=== PATIENT | female | born 1970 | race Caucasian/White ===

== ENCOUNTER 2016-08-07 18:49 | Emergency (ER) | payer SELFPAY ==
[~2016-08-07] VITALS: Ht 175.3 cm; Wt 72.6 kg
[~2016-08-07 18:49] MED LIST: CYCL10TA9 PO; ESCT10T PO; HYDR-3714 PO; IBP800T PO; NAPR-243 PO; NAPR220T29 PO; PRD20T PO; PRM25T PO; TRAM50TA2 PO; TRM50T PO
[2016-08-07] MEDS ORDERED: morphine INJ 10 MG/ML 1ML (SYR OR VIAL) IM ONE (19:00)
[2016-08-07] MEDS ORDERED: KETOROLAC 60 MG/2 ML VIAL IM ONE (19:00)
--- NOTE | 2016-08-07 19:02 | ED Back Pain ---
General Chief Complaint: Back Problems Stated Complaint: BACK PAIN Source of Information: Patient Exam Limitations: No Limitations History of Present Illness Time Seen by Provider: 19:00 Initial Comments To ER with left flank pain for one week. She denies any loss of bowel or bladder control. Denies any fevers nausea or vomiting. Denies any loss of control of her bowel or bladders or any anesthesia or hypoesthesia of her genitals. The pain occasionally travels down the left leg that is infrequent. She states that she has had this pain before and at that time it was a kidney infection. Location: Lumbar Spine Timing/Duration: 1 Week Severity: Moderate Associated Symptoms: lower back pain Allergies and Home Medications Allergies Coded Allergies: No Known Drug Allergies (Unverified , 04/03/12) Home Medications No Active Prescriptions or Reported Meds Constitutional: see HPI, No chills, No fever EENTM: see HPI Respiratory: no symptoms reported Cardiovascular: no symptoms reported Genitourinary: see HPI, No dysuria, No frequency, No hematuria, No hesitancy Musculoskeletal: no symptoms reported Skin: no symptoms reported Psychiatric/Neurological: No Symptoms Reported Past [id number] Hx Patient Social History Recent Foreign Travel: No Contact w/Someone Who Travel: No Surgeries HX Surgeries: Yes (LEFT KNEE) Respiratory Hx Respiratory Disorders: No Cardiovascular Hx Cardiac Disorders: No Neurological Hx Neurological Disorders: No Reproductive System Hx Reproductive Disorders: No Genitourinary Hx Genitourinary Disorders: No Gastrointestinal Hx Gastrointestinal Disorders: No Musculoskeletal Hx Musculoskeletal Disorders: No Endocrine Hx Endocrine Disorders: No HEENT HX ENT Disorders: No Cancer Hx Cancer: No Psychosocial Hx Psychiatric Problems: Yes Behavioral Health Disorders: Anxiety Physical Exam Vital Signs Vital Sign - Last 12Hours 08/07/16 19:00 Temp 98.8 Pulse 94 Resp 20 B/P (MAP) 162/112 Pulse Ox 100 O2 Delivery Room Air Capillary Refill : General Appearance: No Apparent Distress, WD/WN HEENT: PERRL/EOMI, TMs Normal Neck: Full Range of Motion, Normal Inspection Respiratory: No Accessory Muscle Use, No Respiratory Distress Gastrointestinal: Normal Bowel Sounds, Non Tender, Soft Back: CVA Tenderness (L), No CVA Tenderness (R) Extremity: Normal Capillary Refill, Normal Inspection Neurologic/Psychiatric: Alert, Oriented x3, No Motor/Sensory Deficits Skin: Normal Color, Warm/Dry Progress/Results/Core Measures Results/Orders Lab Results Laboratory Tests Test 08/07/16 19:00 08/07/16 19:08 Range/Units Urine Color YELLOW Urine Clarity SLIGHTLY CLOUDY Urine pH 6 5-9 Urine Specific [place] 1.020 1.016-1.022 Urine Protein NEGATIVE NEGATIVE Urine Glucose (UA) NEGATIVE NEGATIVE Urine Ketones NEGATIVE NEGATIVE Urine Nitrite NEGATIVE NEGATIVE Urine Bilirubin NEGATIVE NEGATIVE Urine Urobilinogen NORMAL NORMAL MG/DL Urine Leukocyte Esterase 1+ H NEGATIVE Urine RBC (Auto) NEGATIVE NEGATIVE Urine RBC NONE /HPF Urine WBC 0-2 /HPF Urine Squamous Epithelial Cells 25-50 H /HPF Urine Crystals NONE /LPF Urine Bacteria MODERATE H /HPF Urine Casts NONE /LPF Urine Mucus NEGATIVE /LPF Urine Culture Indicated NO Urine Opiates Screen NEGATIVE NEGATIVE Urine Oxycodone Screen NEGATIVE NEGATIVE Urine Methadone Screen NEGATIVE NEGATIVE Urine Propoxyphene Screen NEGATIVE NEGATIVE Urine Barbiturates Screen NEGATIVE NEGATIVE Ur Tricyclic Antidepressants Screen NEGATIVE NEGATIVE Urine Phencyclidine Screen NEGATIVE NEGATIVE Urine Amphetamines Screen NEGATIVE NEGATIVE Urine Methamphetamines Screen NEGATIVE NEGATIVE Urine Benzodiazepines Screen NEGATIVE NEGATIVE Urine Cocaine Screen NEGATIVE NEGATIVE Urine Cannabinoids Screen POSITIVE H NEGATIVE White Blood Count 8.0 4.3-11.0 10^3/uL Red Blood Count 4.83 4.35-5.85 10^6/uL Hemoglobin 15.6 11.5-16.0 G/DL Hematocrit 44 35-52 % Mean Corpuscular Volume 90 80-99 FL Mean Corpuscular Hemoglobin 32 25-34 PG Mean Corpuscular Hemoglobin Concent 36 32-36 G/DL Red Cell Distribution Width 12.2 10.0-14.5 % Platelet Count 218 130-400 10^3/uL Mean Platelet Volume 11.5 H 7.4-10.4 FL Neutrophils (%) (Auto) 61 42-75 % Lymphocytes (%) (Auto) 29 12-44 % Monocytes (%) (Auto) 7 0-12 % Eosinophils (%) (Auto) 2 0-10 % Basophils (%) (Auto) 0 0-10 % Neutrophils # (Auto) 4.9 1.8-7.8 X 10^3 Lymphocytes # (Auto) 2.3 1.0-4.0 X 10^3 Monocytes # (Auto) 0.6 0.0-1.0 X 10^3 Eosinophils # (Auto) 0.2 0.0-0.3 10^3/uL Basophils # (Auto) 0.0 0.0-0.1 10^3/uL Sodium Level 138 135-145 MMOL/L Potassium Level 3.4 L 3.6-5.0 MMOL/L Chloride Level 105 98-107 MMOL/L Carbon Dioxide Level 26 21-32 MMOL/L Anion Gap 7 5-14 MMOL/L Blood Urea Nitrogen 6 L 7-18 MG/DL Creatinine 0.77 0.60-1.30 MG/DL Estimat Glomerular Filtration Rate > 60 BUN/Creatinine Ratio 8 Glucose Level 95 70-105 MG/DL Calcium Level 9.1 8.5-10.1 MG/DL My Orders Orders - AMANDEEP WILLIAMSON APRN Cbc With Automated Diff (08/07/16 18:59) Basic Metabolic Panel (08/07/16 18:59) Ua Culture If Indicated (08/07/16 18:59) Urine Bedside (08/07/16 18:59) Drug Screen Stat (Urine) (08/07/16 18:59) Ct Abd/Pelvis Wo(Kidney Stone) (08/07/16 18:59) Ketorolac Injection (Toradol Injection) (08/07/16 19:00) Morphine Injection (Morphine Injection (08/07/16 19:00) Us Non Ob Pelvis Comp/Transvag (08/07/16 19:55) Medications Given in ED Current Medications Medications Dose Ordered Sig/Radha Route Start Time Stop Time Status Last Admin Dose Admin Ketorolac Tromethamine 60 mg ONCE ONCE IM 08/07/16 19:00 08/07/16 19:01 DC 08/07/16 19:06 60 MG Morphine Sulfate 6 mg ONCE ONCE IM 08/07/16 19:00 08/07/16 19:01 DC 08/07/16 19:06 6 MG Vital Signs/I&O Vital Sign - Last 12Hours 08/07/16 08/07/16 08/07/16 19:00 19:06 19:06 Temp 98.8 98.8 98.8 Pulse 94 Resp 20 B/P (MAP) 162/112 Pulse Ox 100 O2 Delivery Room Air Departure Impression Impression: Primary Impression: Acute low back pain Additional Impression: Left ovarian cyst Disposition: HOME, SELF-CARE Condition: Stable Departure-Patient Inst. Decision time for Depature: 20:45 [address]errals: [facility] (PCP/Family) Primary Care Physician Patient Instructions: Low Back Pain (DC) Add. Discharge Instructions: 1. Medications as directed 2. Follow-up with your doctor next week for recheck 3. Return to the emergency room for any worsening such as loss of sensation to your genitals, loss of control of bowel or bladder function, high fevers All discharge instructions reviewed with patient and/or family. Voiced understanding. Scripts Cyclobenzaprine HCl (Cyclobenzaprine HCl) 5 Mg Tablet 5 MG PO TID, #20 TAB Prov: AMANDEEP WILLIAMSON APRN 08/07/16 Naproxen (Naprosyn) 500 Mg Tablet 500 MG PO BID Y for PAIN, #30 TAB Prov: AMANDEEP WILLIAMSON APRN 08/07/16 AMANDEEP WILLIAMSON APRN Aug 07, 2016 19:02
[2016-08-07 19:12] LABS: BILIRUBIN,URINE NEGATIVE (NEGATIVE); KETONES,URINE NEGATIVE (NEGATIVE); LEUKOCYTE ESTERASE ,URINE 1+ (NEGATIVE); NITRITE,URINE NEGATIVE (NEGATIVE); PH,URINE 6 (5-9); PROTEIN,URINE NEGATIVE (NEGATIVE); UROBILINOGEN,URINE NORMAL (NORMAL)
[2016-08-07 19:19] LABS: SQUAMOUS EPITHELIAL CELL,UR 25-50 /HPF; WBC,URINE 0-2 /HPF
[2016-08-07 19:19] LABS: BASOPHILS % (AUTO) 0 % (0-10); EOSINOPHILS # (AUTO) 0.2 10^3/uL (0.0-0.3); EOSINOPHILS % (AUTO) 2 % (0-10); LYMPHOCYTES # (AUTO) 2.3 X 10^3 (1.0-4.0); LYMPHOCYTES % (AUTO) 29 % (12-44); MEAN CORPUSCULAR HEMOGLOBIN 32 PG (25-34); MEAN CORPUSCULAR HGB CONC 36 G/DL (32-36); MEAN CORPUSCULAR VOLUME 90 FL (80-99); MEAN PLATELET VOLUME 11.5 FL (7.4-10.4); MONOCYTES # (AUTO) 0.6 X 10^3 (0.0-1.0); MONOCYTES % (AUTO) 7 % (0-12); NEUTROPHILS # (AUTO) 4.9 X 10^3 (1.8-7.8); NEUTROPHILS % (AUTO) 61 % (42-75); PLATELET COUNT 218 10^3/uL (130-400); RED BLOOD COUNT 4.83 10^6/uL (4.35-5.85); RED CELL DISTRIBUTION WIDTH 12.2 % (10.0-14.5)
[2016-08-07 19:31] LABS: ANION GAP 7 MMOL/L (5-14); BLOOD UREA NITROGEN 6 MG/DL (7-18); BUN/CREATININE RATIO 8; CALCIUM 9.1 MG/DL (8.5-10.1); CARBON DIOXIDE 26 MMOL/L (21-32); CHLORIDE 105 MMOL/L (98-107); CREATININE SERUM 0.77 MG/DL (0.60-1.30); GFR ESTIMATED > 60; GLUCOSE 95 MG/DL (70-105); POTASSIUM 3.4 MMOL/L (3.6-5.0); SODIUM 138 MMOL/L (135-145)
--- NOTE | 2016-08-07 19:42 | Diagnostic Imaging Report ---
PROCEDURE: CT urinary tract, rule out kidney stone. TECHNIQUE: Multiple contiguous axial images were obtained through the abdomen and pelvis without the use of intravenous contrast. INDICATION: Severe left lower flank and back pain for one week COMPARISON STUDY: CT scan from 04-03-12. FINDINGS: The lung bases are clear. The liver, gallbladder, spleen, pancreas, adrenal glands appear normal. Both renal pelvises are little more prominent than they were previously. The calyces are not dilated. This is probably due to the patient's hydration state. The ureters are not dilated and no calculi are seen. Urinary bladder is mildly thickened possibly urinary tract infection. The uterus is normal. There is a 3.7 cm left ovarian cyst. No free fluid is present. There are no hernias. The bowel loops appear unremarkable. There is normal appearance of the appendix. The vascular and osseous structures are normal. IMPRESSION: 1. There is mild thickening of the urinary bladder possible urinary tract infection. 2. There is a 3.7 cm left ovarian cyst. Dictated by: Dictated on workstation # [id number]
[2016-08-07] MEDS ORDERED: CYCL5TAB PO (20:47)
[2016-08-07] MEDS ORDERED: NAPR500T PO (20:47)
[2016-08-07 21:01] VITALS: BP 133/108
--- NOTE | 2016-08-07 21:37 | Diagnostic Imaging Report ---
INDICATION: Pelvic pain. EXAM: Transabdominal and endovaginal pelvic sonogram was performed. FINDINGS: The uterus measures 7.4 x 4.5 x 3.2 cm. The endometrial stripe is 5 mm. There is a 3 cm cyst on the left ovary with low-level internal echoes. This may be a hemorrhagic cyst. The right ovary was not seen. IMPRESSION: Hemorrhagic cyst of the left ovary. The uterus is unremarkable. The right ovary cannot be located transabdominally or endovaginally. Dictated by: Dictated on workstation # [id number]
--- OUTSIDE RECORDS SUMMARY | 2016-09-09 15:14 | XMS REPORT | Continuity of Care Document ---
Author Author [facility] Organization [facility] Address Unknown Phone Unavailable Allergies Active Description Code Type Severity Reaction Onset Reported/Identified Relationship to Patient Clinical Status Yes No Known Drug Allergies [id number] Drug Allergy Unknown N/ A 04/03/2012 Yes Benzodiazepines Drug Allergy N/A N/A 05/16/2012 Yes Lortab Drug Allergy N/A N/A 05/16/2012 Yes Benzodiazepines Drug Allergy 05/16/2012 Yes Lortab Drug Allergy 05/16/2012 Medications Problems Date Dx Coded Attending Type Code Diagnosis Diagnosed By 04/03/2012 Ot 289.2 MESENTERIC LYMPHADENITIS 04/03/2012 Ot 724.2 LUMBAGO 04/03/2012 Ot 789.09 ABDOMINAL PAIN, OTHER SPECIFIED SITE 05/03/2012 787.02 NAUSEA ALONE 05/03/2012 787.91 DIARRHEA 05/03/2012 789.00 ABDOMINAL PAIN UNSPECIFIED SITE 05/03/2012 V70.0 ROUTINE GENERAL MEDICAL EXAMINATION AT A HEALTH CARE FACILITY 05/03/2012 YODIT MCMAHAN DO 787.02 NAUSEA ALONE 05/03/2012 YODIT MCMAHAN DO 787.91 DIARRHEA 05/03/2012 YODIT MCMAHAN DO 789.00 ABDOMINAL PAIN UNSPECIFIED SITE 05/03/2012 YODIT MCMAHAN DO V70.0 ROUTINE GENERAL MEDICAL EXAMINATION AT A HEALTH CARE FACILITY 05/03/2012 787.02 NAUSEA ALONE 05/03/2012 787.91 DIARRHEA 05/03/2012 789.00 ABDOMINAL PAIN UNSPECIFIED SITE 05/03/2012 V70.0 ROUTINE GENERAL MEDICAL EXAMINATION AT A HEALTH CARE FACILITY 05/03/2012 ROBERT HAWKINS APRN 787.02 NAUSEA ALONE 05/03/2012 ROBERT HAWKINS APRN 787.91 DIARRHEA 05/03/2012 ROBERT HAWKINS APRN R 789.00 ABDOMINAL PAIN UNSPECIFIED SITE 05/03/2012 ROBERT HAWKINS APRN V70.0 ROUTINE GENERAL MEDICAL EXAMINATION AT A HEALTH CARE FACILITY 05/03/2012 787.02 Nausea Alone 05/03/2012 787.91 Diarrhea 05/03/2012 789.00 Abdominal Pain Unspecified Site 05/03/2012 V70.0 ROUTINE GENERAL MEDICAL EXAMINATION AT A HEALTH CARE FACILITY 05/03/2012 YODIT MCMAHAN DO K 787.02 Nausea Alone 05/03/2012 MCMAHAN YODIT BOSE K 787.91 Diarrhea 05/03/2012 YODIT MCMAHAN DO K 789.00 Abdominal Pain Unspecified Site 05/03/2012 YODIT MCMAHAN DO K V70.0 ROUTINE GENERAL MEDICAL EXAMINATION AT A HEALTH CARE FACILITY 05/03/2012 787.02 Nausea Alone 05/03/2012 787.91 Diarrhea 05/03/2012 789.00 Abdominal Pain Unspecified Site 05/03/2012 V70.0 ROUTINE GENERAL MEDICAL EXAMINATION AT A HEALTH CARE FACILITY 05/03/2012 787.02 Nausea Alone 05/03/2012 787.91 Diarrhea 05/03/2012 789.00 Abdominal Pain Unspecified Site 05/03/2012 V70.0 ROUTINE GENERAL MEDICAL EXAMINATION AT A HEALTH CARE FACILITY 05/03/2012 787.02 Nausea Alone 05/03/2012 787.91 Diarrhea 05/03/2012 789.00 Abdominal Pain Unspecified Site 05/03/2012 V70.0 ROUTINE GENERAL MEDICAL EXAMINATION AT A HEALTH CARE FACILITY 05/03/2012 787.02 Nausea Alone 05/03/2012 787.91 Diarrhea 05/03/2012 789.00 Abdominal Pain Unspecified Site 05/03/2012 V70.0 ROUTINE GENERAL MEDICAL EXAMINATION AT A HEALTH CARE FACILITY 05/03/2012 ABRAM MISHRA APRN 787.02 Nausea Alone 05/03/2012 ABRAM MISHRA APRN 787.91 Diarrhea 05/03/2012 ABRAM MISHRA APRN 789.00 Abdominal Pain Unspecified Site 05/03/2012 ABRAM MISHRA APRN V70.0 ROUTINE GENERAL MEDICAL EXAMINATION AT A HEALTH CARE FACILITY 05/03/2012 ABRAM MISHRA APRN 787.02 Nausea Alone 05/03/2012 ABRAM MISHRA APRN 787.91 Diarrhea 05/03/2012 ABRAM MISHRA APRN 789.00 Abdominal Pain Unspecified Site 05/03/2012 ABRAM MISHRA APRN V70.0 ROUTINE GENERAL MEDICAL EXAMINATION AT A HEALTH CARE FACILITY 05/03/2012 RAYMUNDO WILKINSON APRN N 787.02 Nausea Alone 05/03/2012 ROXANN KARIMI APRN, RAYMUNDO N 787.91 Diarrhea 05/03/2012 NAA WILKINSON APRNCY N 789.00 Abdominal Pain Unspecified Site 05/03/2012 RAYMUNDO WILKINSON APRN N V70.0 ROUTINE GENERAL MEDICAL EXAMINATION AT A HEALTH CARE FACILITY 05/03/2012 ABRAM MISHRA APRN T 787.02 Nausea Alone 05/03/2012 ABRAM MISHRA APRN T 787.91 Diarrhea 05/03/2012 ABRAM MISHRA APRN T 789.00 Abdominal Pain Unspecified Site 05/03/2012 ABRAM MISHRA APRN T V70.0 ROUTINE GENERAL MEDICAL EXAMINATION AT A HEALTH CARE FACILITY 05/03/2012 MCMAHAN DO, YODIT K 787.02 Nausea Alone 05/03/2012 MCMAHAN DO, YODIT K 787.91 Diarrhea 05/03/2012 MCMAHAN DO, YODIT K 789.00 Abdominal Pain Unspecified Site 05/03/2012 MCMAHAN DO, YODIT K V70.0 ROUTINE GENERAL MEDICAL EXAMINATION AT A HEALTH CARE FACILITY 05/03/2012 MADL PNEUMATIC TOOL REPAIRER, OSCAR L 787.02 Nausea Alone 05/03/2012 MADL PNEUMATIC TOOL REPAIRER, OSCAR L 787.91 Diarrhea 05/03/2012 MADL PNEUMATIC TOOL REPAIRER, OSCAR L 789.00 Abdominal Pain Unspecified Site 05/03/2012 MADL PNEUMATIC TOOL REPAIRER, OSCAR L V70.0 ROUTINE GENERAL MEDICAL EXAMINATION AT A HEALTH CARE FACILITY 05/03/2012 MADL PNEUMATIC TOOL REPAIRER, OSCAR L 787.02 Nausea Alone 05/03/2012 MADL PNEUMATIC TOOL REPAIRER, OSCAR L 787.91 Diarrhea 05/03/2012 MADL PNEUMATIC TOOL REPAIRER, OSCAR L 789.00 Abdominal Pain Unspecified Site 05/03/2012 MADL PNEUMATIC TOOL REPAIRER, OSCAR L V70.0 ROUTINE GENERAL MEDICAL EXAMINATION AT A HEALTH CARE FACILITY 05/03/2012 MCMAHAN DO, YODIT K 787.02 Nausea Alone 05/03/2012 MCMAHAN DO, YODIT K 787.91 Diarrhea 05/03/2012 MCMAHAN DO, YODIT K 789.00 Abdominal Pain Unspecified Site 05/03/2012 MCMAHAN DO, YODIT K V70.0 ROUTINE GENERAL MEDICAL EXAMINATION AT A HEALTH CARE FACILITY 05/03/2012 DEDE NATH, DAYNE A 787.02 Nausea Alone 05/03/2012 DEDE NATH, DAYNE A 787.91 Diarrhea 05/03/2012 DEDE NATH, DAYNE A 789.00 Abdominal Pain Unspecified Site 05/03/2012 KLARISSA AGUAYO APRNIDI A V70.0 ROUTINE GENERAL MEDICAL EXAMINATION AT A HEALTH CARE FACILITY 05/03/2012 DEDE NATH, DAYNE A 787.02 Nausea Alone 05/03/2012 DEDE NATH, DAYNE A 787.91 Diarrhea 05/03/2012 DEDE NATH, DAYNE A 789.00 Abdominal Pain Unspecified Site 05/03/2012 KLARISSA AGUAYO APRNIDI A V70.0 ROUTINE GENERAL MEDICAL EXAMINATION AT A HEALTH CARE FACILITY 05/03/2012 DUANE NOE PA-C M 787.02 Nausea Alone 05/03/2012 DUANE NOE PA-C M 787.91 Diarrhea 05/03/2012 DUANE NOE PA-C M 789.00 Abdominal Pain Unspecified Site 05/03/2012 DUANE NOE PA-C M V70.0 ROUTINE GENERAL MEDICAL EXAMINATION AT A HEALTH CARE FACILITY 05/03/2012 JESSI DPM, ELISABET 787.02 Nausea Alone 05/03/2012 JESSI DPM, ELISABET 787.91 Diarrhea 05/03/2012 JESSI DPM, ELISABET 789.00 Abdominal Pain Unspecified Site 05/03/2012 JESSI DPM, ELISABET V70.0 ROUTINE GENERAL MEDICAL EXAMINATION AT A HEALTH CARE FACILITY 05/03/2012 LAURA HANNON APRN 787.02 Nausea Alone 05/03/2012 LAURA HANNON APRN 787.91 Diarrhea 05/03/2012 LAURA HANNON APRN 789.00 Abdominal Pain Unspecified Site 05/03/2012 LAURA HANNON APRN V70.0 ROUTINE GENERAL MEDICAL EXAMINATION AT A HEALTH CARE FACILITY 06/16/2012 ROBERT HAWKINS APRN 305.1 NONDEPENDENT TOBACCO USE DISORDER 06/16/2012 ROBERT HAWKINS APRN 380.10 OTITIS EXTERNA 06/16/2012 ROBERT HAWKINS APRN 461.9 SINUSITIS ACUTE 06/16/2012 ROBERT HAWKINS APRN R 466.0 BRONCHITIS, ACUTE 06/16/2012 ROBERT HAWKINS APRN R V65.42 COUNSELING - SMOKING CESSATION 06/16/2012 305.1 NONDEPENDENT TOBACCO USE DISORDER 06/16/2012 380.10 Otitis Externa 06/16/2012 461.9 Sinusitis Acute 06/16/2012 466.0 Bronchitis, Acute 06/16/2012 V65.42 COUNSELING - SMOKING CESSATION 06/16/2012 MCMAHAN DO YODIT K 305.1 NONDEPENDENT TOBACCO USE DISORDER 06/16/2012 MCMAHAN DO, YODIT K 380.10 Otitis Externa 06/16/2012 MCMAHAN DO YODIT K 461.9 Sinusitis Acute 06/16/2012 MCMAHAN DO YODIT K 466.0 Bronchitis, Acute 06/16/2012 MCMAHAN DO, YODIT K V65.42 COUNSELING - SMOKING CESSATION 06/16/2012 305.1 NONDEPENDENT TOBACCO USE DISORDER 06/16/2012 380.10 Otitis Externa 06/16/2012 461.9 Sinusitis Acute 06/16/2012 466.0 Bronchitis, Acute 06/16/2012 V65.42 COUNSELING - SMOKING CESSATION 06/16/2012 305.1 NONDEPENDENT TOBACCO USE DISORDER 06/16/2012 380.10 Otitis Externa 06/16/2012 461.9 Sinusitis Acute 06/16/2012 466.0 Bronchitis, Acute 06/16/2012 V65.42 COUNSELING - SMOKING CESSATION 06/16/2012 305.1 NONDEPENDENT TOBACCO USE DISORDER 06/16/2012 380.10 Otitis Externa 06/16/2012 461.9 Sinusitis Acute 06/16/2012 466.0 Bronchitis, Acute 06/16/2012 V65.42 COUNSELING - SMOKING CESSATION 06/16/2012 305.1 NONDEPENDENT TOBACCO USE DISORDER 06/16/2012 380.10 Otitis Externa 06/16/2012 461.9 Sinusitis Acute 06/16/2012 466.0 Bronchitis, Acute 06/16/2012 V65.42 COUNSELING - SMOKING CESSATION 06/16/2012 ABRAM MISHRA APRN 305.1 NONDEPENDENT TOBACCO USE DISORDER 06/16/2012 ABRAM MISHRA APRN 380.10 Otitis Externa 06/16/2012 ABRAM MISHRA APRN 461.9 Sinusitis Acute 06/16/2012 ABRAM MISHRA APRN 466.0 Bronchitis, Acute 06/16/2012 ABRAM MISHRA APRN V65.42 COUNSELING - SMOKING CESSATION 06/16/2012 ABRAM MISHRA APRN 305.1 NONDEPENDENT TOBACCO USE DISORDER 06/16/2012 ABRAM MISHRA APRN T 380.10 Otitis Externa 06/16/2012 ABRAM MISHRA APRN T 461.9 Sinusitis Acute 06/16/2012 ABRAM MISHRA APRN 466.0 Bronchitis, Acute 06/16/2012 ABRAM MISHRA APRN V65.42 COUNSELING - SMOKING CESSATION 06/16/2012 HACKETT CASHERO PNEUMATIC TOOL REPAIRER, RAYMUNDO N 305.1 NONDEPENDENT TOBACCO USE DISORDER 06/16/2012 HACKETT CASHERO PNEUMATIC TOOL REPAIRER, RAYMUNDO N 380.10 Otitis Externa 06/16/2012 HACKETT CASHERO PNEUMATIC TOOL REPAIRER, RAYMUNDO N 461.9 Sinusitis Acute 06/16/2012 HACKETT CASHERO PNEUMATIC TOOL REPAIRER, RAYMUNDO N 466.0 Bronchitis, Acute 06/16/2012 HACKETT CASHERO PNEUMATIC TOOL REPAIRER, RAYMUNDO N V65.42 COUNSELING - SMOKING CESSATION 06/16/2012 ABRAM MISHRA APRN 305.1 NONDEPENDENT TOBACCO USE DISORDER 06/16/2012 ABRAM MISHRA APRN T 380.10 Otitis Externa 06/16/2012 ABRAM MISHRA APRN 461.9 Sinusitis Acute 06/16/2012 ABRAM MISHRA APRN 466.0 Bronchitis, Acute 06/16/2012 ABRAM MISHRA APRN V65.42 COUNSELING - SMOKING CESSATION 06/16/2012 MCMAHAN DO, YODIT K 305.1 NONDEPENDENT TOBACCO USE DISORDER 06/16/2012 MCMAHAN DO, YODIT K 380.10 Otitis Externa 06/16/2012 MCMAHAN DO, YODIT K 461.9 Sinusitis Acute 06/16/2012 MCMAHAN DO, YODIT K 466.0 Bronchitis, Acute 06/16/2012 MCMAHAN DO, YODIT K V65.42 COUNSELING - SMOKING CESSATION 06/16/2012 MADL PNEUMATIC TOOL REPAIRER, OSCAR L 305.1 NONDEPENDENT TOBACCO USE DISORDER 06/16/2012 MADL PNEUMATIC TOOL REPAIRER, OSCAR L 380.10 Otitis Externa 06/16/2012 MADL PNEUMATIC TOOL REPAIRER, OSCAR L 461.9 Sinusitis Acute 06/16/2012 MADL PNEUMATIC TOOL REPAIRER, OSCAR L 466.0 Bronchitis, Acute 06/16/2012 HILDA BURTON APRNA L V65.42 COUNSELING - SMOKING CESSATION 06/16/2012 HILDA BURTON APRNA L 305.1 NONDEPENDENT TOBACCO USE DISORDER 06/16/2012 MICHEAL NATH, OSCAR L 380.10 Otitis Externa 06/16/2012 MICHEAL NATH, OSCAR L 461.9 Sinusitis Acute 06/16/2012 MICHEAL NATH, OSCAR L 466.0 Bronchitis, Acute 06/16/2012 GOLDENL PHAM, OSCAR L V65.42 COUNSELING - SMOKING CESSATION 06/16/2012 MCMAHAN DO, YODIT K 305.1 NONDEPENDENT TOBACCO USE DISORDER 06/16/2012 MCMAHAN DO, YODIT K 380.10 Otitis Externa 06/16/2012 MCMAHAN DO, YODIT K 461.9 Sinusitis Acute 06/16/2012 MCMAHAN DO, YODIT K 466.0 Bronchitis, Acute 06/16/2012 MCMAHAN DO, YODIT K V65.42 COUNSELING - SMOKING CESSATION 06/16/2012 DEDE NATH, DAYNE A 305.1 NONDEPENDENT TOBACCO USE DISORDER 06/16/2012 DEDE NATH, DAYNE A 380.10 Otitis Externa 06/16/2012 DEDE NATH, DAYNE A 461.9 Sinusitis Acute 06/16/2012 DEDE NATH, DAYNE A 466.0 Bronchitis, Acute 06/16/2012 DEDE NATH, DAYNE A V65.42 COUNSELING - SMOKING CESSATION 06/16/2012 DEDE NATH, DAYNE A 305.1 NONDEPENDENT TOBACCO USE DISORDER 06/16/2012 DEDE NATH, DAYNE A 380.10 Otitis Externa 06/16/2012 DEDE NATH, DAYNE A 461.9 Sinusitis Acute 06/16/2012 DEDE NATH, DAYNE A 466.0 Bronchitis, Acute 06/16/2012 DEDE NATH, DAYNE A V65.42 COUNSELING - SMOKING CESSATION 06/16/2012 DUANE NOE PA-C 305.1 NONDEPENDENT TOBACCO USE DISORDER 06/16/2012 DUANE NOE PA-C 380.10 Otitis Externa 06/16/2012 DUANE NOE PA-C 461.9 Sinusitis Acute 06/16/2012 DUANE NOE PA-C 466.0 Bronchitis, Acute 06/16/2012 DUANE NOE PA-C V65.42 COUNSELING - SMOKING CESSATION 06/16/2012 JESSI DPM, ELISABET 305.1 NONDEPENDENT TOBACCO USE DISORDER 06/16/2012 JESSI DPM, ELISABET 380.10 Otitis Externa 06/16/2012 JESSI DPM, ELISABET 461.9 Sinusitis Acute 06/16/2012 JESSI DPM, ELISABET 466.0 Bronchitis, Acute 06/16/2012 JESSI DPM, ELISABET V65.42 COUNSELING - SMOKING CESSATION 06/16/2012 LAURA HANNON APRN 305.1 NONDEPENDENT TOBACCO USE DISORDER 06/16/2012 LAURA HANNON APRN 380.10 Otitis Externa 06/16/2012 LAURA HANNON APRN 461.9 Sinusitis Acute 06/16/2012 LAURA HANNON APRN 466.0 Bronchitis, Acute 06/16/2012 LAURA HANNON APRN V65.42 COUNSELING - SMOKING CESSATION 06/18/2012 ROBERT HAWKINS APRN R 784.0 headache 06/18/2012 784.0 headache 06/18/2012 MCMAHAN DO, YODIT K 784.0 headache 06/18/2012 784.0 headache 06/18/2012 784.0 headache 06/18/2012 784.0 headache 06/18/2012 784.0 headache 06/18/2012 ABRAM MISHRA APRN T 784.0 headache 06/18/2012 ABRAM MISHRA APRN 784.0 headache 06/18/2012 RAYMUNDO WILKINSON APRN N 784.0 headache 06/18/2012 ABRAM MISHRA APRN T 784.0 headache 06/18/2012 MCMAHAN DO, YODIT K 784.0 headache 06/18/2012 MADHILDA Faria APRNA L 784.0 headache 06/18/2012 MADL PHAM OSCAR L 784.0 headache 06/18/2012 MCMAHAN DO, YODIT K 784.0 headache 06/18/2012 DEDEDAYNE Wilks APRN A 784.0 headache 06/18/2012 DEDEEfe NATH DAYNE A 784.0 headache 06/18/2012 DUANE NOE PA-C 784.0 headache 06/18/2012 ELISABET BOWEN DPM 784.0 headache 06/18/2012 LAURA HANNON APRN 784.0 headache 08/22/2012 077.99 UNSPECIFIED DISEASES OF CONJUNCTIVA DUE TO VIRUSES 08/22/2012 077.99 UNSPECIFIED DISEASES OF CONJUNCTIVA DUE TO VIRUSES 08/22/2012 077.99 UNSPECIFIED DISEASES OF CONJUNCTIVA DUE TO VIRUSES 08/22/2012 077.99 UNSPECIFIED DISEASES OF CONJUNCTIVA DUE TO VIRUSES 08/22/2012 ABRAM MISHRA APRN 077.99 UNSPECIFIED DISEASES OF CONJUNCTIVA DUE TO VIRUSES 08/22/2012 ABRAM MISHRA APRN 077.99 UNSPECIFIED DISEASES OF CONJUNCTIVA DUE TO VIRUSES 08/22/2012 RAYMUNDO WILKINSON APRN 077.99 UNSPECIFIED DISEASES OF CONJUNCTIVA DUE TO VIRUSES 08/22/2012 ABRAM MISHRA APRN 077.99 UNSPECIFIED DISEASES OF CONJUNCTIVA DUE TO VIRUSES 08/22/2012 MCMAHAN DO YODIT K 077.99 UNSPECIFIED DISEASES OF CONJUNCTIVA DUE TO VIRUSES 08/22/2012 MADBienvenido NATH, OSCAR L 077.99 UNSPECIFIED DISEASES OF CONJUNCTIVA DUE TO VIRUSES 08/22/2012 MADL PNEUMATIC TOOL REPAIRER, OSCAR L 077.99 UNSPECIFIED DISEASES OF CONJUNCTIVA DUE TO VIRUSES 08/22/2012 MCMAHAN DO, YODIT K 077.99 UNSPECIFIED DISEASES OF CONJUNCTIVA DUE TO VIRUSES 08/22/2012 DEDE NATH DAYNE A 077.99 UNSPECIFIED DISEASES OF CONJUNCTIVA DUE TO VIRUSES 08/22/2012 DEDE NATH DAYNE A 077.99 UNSPECIFIED DISEASES OF CONJUNCTIVA DUE TO VIRUSES 08/22/2012 DUANE NOE PA-C 077.99 UNSPECIFIED DISEASES OF CONJUNCTIVA DUE TO VIRUSES 08/22/2012 ELISABET BOWEN DPM 077.99 UNSPECIFIED DISEASES OF CONJUNCTIVA DUE TO VIRUSES 08/22/2012 LAURA HANNON APRN 077.99 UNSPECIFIED DISEASES OF CONJUNCTIVA DUE TO VIRUSES 10/07/2012 521.00 DENTAL CARIES 10/07/2012 521.00 DENTAL CARIES 10/07/2012 TAD PNEUMATIC TOOL REPAIRER, ABRAM T 521.00 DENTAL CARIES 10/07/2012 ABRAM MISHRA APRN T 521.00 DENTAL CARIES 10/07/2012 ROXANN KARIMI PNEUMATIC TOOL REPAIRER, RAYMUNDO N 521.00 DENTAL CARIES 10/07/2012 ABRAM MISHRA APRN T 521.00 DENTAL CARIES 10/07/2012 MCMAHAN DO, YODIT K 521.00 DENTAL CARIES 10/07/2012 MADL PNEUMATIC TOOL REPAIRER, OSCAR L 521.00 DENTAL CARIES 10/07/2012 MADL PNEUMATIC TOOL REPAIRER, OSCAR L 521.00 DENTAL CARIES 10/07/2012 MCMAHAN DO, YODIT K 521.00 DENTAL CARIES 10/07/2012 DEDE PNEUMATIC TOOL REPAIRER, DAYNE A 521.00 DENTAL CARIES 10/07/2012 DEDE PNEUMATIC TOOL REPAIRER, DAYNE A 521.00 DENTAL CARIES 10/07/2012 HASMUKH WHEATLEY, DUANE Amado 521.00 DENTAL CARIES 10/07/2012 JESSI DPM, ELISABET 521.00 DENTAL CARIES 10/07/2012 LAURA HANNON APRN 521.00 DENTAL CARIES 12/26/2012 078.19 WARTS, COMMON 12/26/2012 523.31 AGGRESSIVE PERIODONTITIS LOCALIZED 12/26/2012 TAD PNEUMATIC TOOL REPAIRERABRAM Wilks T 078.19 WARTS, COMMON 12/26/2012 ABRAM MISHRA APRN T 523.31 AGGRESSIVE PERIODONTITIS LOCALIZED 12/26/2012 TAD PNEUMATIC TOOL REPAIRERABRAM Wilks T 078.19 WARTS, COMMON 12/26/2012 TAD PNEUMATIC TOOL REPAIRERABRAM Wilks T 523.31 AGGRESSIVE PERIODONTITIS LOCALIZED 12/26/2012 ROXANN BRADENLINDA PNEUMATIC TOOL REPAIRER, RAYMUNDO N 078.19 WARTS, COMMON 12/26/2012 HACKETT ASIYAERO PNEUMATIC TOOL REPAIRER, RAYMUNDO N 523.31 AGGRESSIVE PERIODONTITIS LOCALIZED 12/26/2012 ABRAM MISHRA APRN T 078.19 WARTS, COMMON 12/26/2012 ABRAM MISHRA APRN T 523.31 AGGRESSIVE PERIODONTITIS LOCALIZED 12/26/2012 MCMAHAN DO, YODIT K 078.19 WARTS, COMMON 12/26/2012 MCMAHAN DO, YODIT K 523.31 AGGRESSIVE PERIODONTITIS LOCALIZED 12/26/2012 MADL PNEUMATIC TOOL REPAIRER, OSCAR L 078.19 WARTS, COMMON 12/26/2012 MADL PNEUMATIC TOOL REPAIRER, OSCAR L 523.31 AGGRESSIVE PERIODONTITIS LOCALIZED 12/26/2012 MADL PNEUMATIC TOOL REPAIRER, OSCAR L 078.19 WARTS, COMMON 12/26/2012 MADL PNEUMATIC TOOL REPAIRER, OSCAR L 523.31 AGGRESSIVE PERIODONTITIS LOCALIZED 12/26/2012 MCMAHAN DO, YODIT K 078.19 WARTS, COMMON 12/26/2012 MCMAHAN DO, YODIT K 523.31 AGGRESSIVE PERIODONTITIS LOCALIZED 12/26/2012 DEDE PNEUMATIC TOOL REPAIRER, DAYNE A 078.19 WARTS, COMMON 12/26/2012 DEDE PNEUMATIC TOOL REPAIRER, DAYNE A 523.31 AGGRESSIVE PERIODONTITIS LOCALIZED 12/26/2012 DEDE PNEUMATIC TOOL REPAIRER, DAYNE A 078.19 WARTS, COMMON 12/26/2012 DEDE PNEUMATIC TOOL REPAIRER, DAYNE A 523.31 AGGRESSIVE PERIODONTITIS LOCALIZED 12/26/2012 HASMUKH WHEATLEY, DUANE Amado 078.19 WARTS, COMMON 12/26/2012 HASMUKH WHEATLEY, DUANE Amado 523.31 AGGRESSIVE PERIODONTITIS LOCALIZED 12/26/2012 JESSI DPM, ELISABET 078.19 WARTS, COMMON 12/26/2012 JESSI DPM, ELISABET 523.31 AGGRESSIVE PERIODONTITIS LOCALIZED 12/26/2012 HANNON PNEUMATIC TOOL REPAIREREFRAON D 078.19 WARTS, COMMON 12/26/2012 HANNON PNEUMATIC TOOL REPAIRER, LAURA D 523.31 AGGRESSIVE PERIODONTITIS LOCALIZED 02/03/2013 ABRAM MISHRA APRN 354.0 CARPAL TUNNEL SYNDROME 02/03/2013 ABRAM MISHRA APRN 354.0 CARPAL TUNNEL SYNDROME 02/03/2013 RAYMUNDO WILKINSON APRN 354.0 CARPAL TUNNEL SYNDROME 02/03/2013 ABRAM MISHRA APRN 354.0 CARPAL TUNNEL SYNDROME 02/03/2013 MCMAHAN DO, YODIT K 354.0 CARPAL TUNNEL SYNDROME 02/03/2013 MADL PNEUMATIC TOOL REPAIRER, OSCAR L 354.0 CARPAL TUNNEL SYNDROME 02/03/2013 MADL PNEUMATIC TOOL REPAIRER, OSCAR L 354.0 CARPAL TUNNEL SYNDROME 02/03/2013 MCMAHAN DO, YODIT K 354.0 CARPAL TUNNEL SYNDROME 02/03/2013 DEDE PNEUMATIC TOOL REPAIRER, DAYNE A 354.0 CARPAL TUNNEL SYNDROME 02/03/2013 DEDE PNEUMATIC TOOL REPAIRER, DAYNE A 354.0 CARPAL TUNNEL SYNDROME 02/03/2013 NOE PA-C, DUANE M 354.0 CARPAL TUNNEL SYNDROME 02/03/2013 JESSI DPIngris, ELISABET 354.0 CARPAL TUNNEL SYNDROME 02/03/2013 LAURA HANNON APRN 354.0 CARPAL TUNNEL SYNDROME 05/04/2013 HACKETTMARISELA KARIMI PNEUMATIC TOOL REPAIRER, RAYMUNDO N 724.3 SCIATICA 05/04/2013 HACKETTMARISELA KARIMI PNEUMATIC TOOL REPAIRER, RAYMUNDO N 787.03 VOMITING ALONE 05/04/2013 ABRAM MISHRA APRN T 724.3 SCIATICA 05/04/2013 ABRAM MISHRA APRN 787.03 VOMITING ALONE 05/04/2013 MCMAHAN DO, YODIT K 724.3 SCIATICA 05/04/2013 MCMAHAN DO, YODIT K 787.03 VOMITING ALONE 05/04/2013 MADL PNEUMATIC TOOL REPAIRER, OSCAR L 724.3 SCIATICA 05/04/2013 MADL PNEUMATIC TOOL REPAIRER, OSCAR L 787.03 VOMITING ALONE 05/04/2013 MADL PNEUMATIC TOOL REPAIRER, OSCAR L 724.3 SCIATICA 05/04/2013 MADL PNEUMATIC TOOL REPAIRER, OSCAR L 787.03 VOMITING ALONE 05/04/2013 MCMAHAN DO, YODIT K 724.3 SCIATICA 05/04/2013 MCMAHAN DO, YODIT K 787.03 VOMITING ALONE 05/04/2013 DEDE PNEUMATIC TOOL REPAIRER, DAYNE A 724.3 SCIATICA 05/04/2013 DEDE PNEUMATIC TOOL REPAIRER, DAYNE A 787.03 VOMITING ALONE 05/04/2013 DEDE PNEUMATIC TOOL REPAIRER, DAYNE A 724.3 SCIATICA 05/04/2013 DEDE PNEUMATIC TOOL REPAIRER, DAYNE A 787.03 VOMITING ALONE 05/04/2013 DUANE NOE PA-C 724.3 SCIATICA 05/04/2013 DUANE NOE PA-C 787.03 VOMITING ALONE 05/04/2013 JESSI DPIngris, ELISABET 724.3 SCIATICA 05/04/2013 JESSI DPIngris, ELISABET 787.03 VOMITING ALONE 05/04/2013 LAURA HANNON APRN 724.3 SCIATICA 05/04/2013 LAURA HANNON APRN 787.03 VOMITING ALONE 05/20/2013 ABRAM MISHRA APRN 466.0 BRONCHITIS, ACUTE 05/20/2013 MCMAHAN DO, YODIT K 466.0 BRONCHITIS, ACUTE 05/20/2013 MADL PNEUMATIC TOOL REPAIRER, OSCAR L 466.0 BRONCHITIS, ACUTE 05/20/2013 MADL PNEUMATIC TOOL REPAIRER, OSCAR L 466.0 BRONCHITIS, ACUTE 05/20/2013 MCMAHAN DO, YODIT K 466.0 BRONCHITIS, ACUTE 05/20/2013 DEDE PNEUMATIC TOOL REPAIRER, DAYNE A 466.0 BRONCHITIS, ACUTE 05/20/2013 DEDE PNEUMATIC TOOL REPAIRER, DAYNE A 466.0 BRONCHITIS, ACUTE 05/20/2013 HASMUKH WHEATLEY, DUANE Amado 466.0 BRONCHITIS, ACUTE 05/20/2013 JESSI DPM, ELISABET 466.0 BRONCHITIS, ACUTE 05/20/2013 LAURA HANNON APRN 466.0 BRONCHITIS, ACUTE 08/25/2013 JOSE MOURA Ot 719.45 JOINT PAIN-PELVIS 08/25/2013 JOSE MOURA Ot 724.3 SCIATICA 09/21/2013 DEMI MARTIN, BETO Mcdonald Ot 724.3 SCIATICA 09/21/2013 DEMI MARTIN, BETO Mcdonald Ot 729.5 PAIN IN LIMB 09/29/2013 MCMAHAN DO, YODIT K 719.47 PAIN IN JOINT INVOLVING ANKLE AND FOOT 09/29/2013 MCMAHAN DO, YODIT K 729.5 PAIN IN LIMB 09/29/2013 MADL PNEUMATIC TOOL REPAIRER, OSCAR L 719.47 PAIN IN JOINT INVOLVING ANKLE AND FOOT 09/29/2013 MADL PNEUMATIC TOOL REPAIRER, OSCAR L 729.5 PAIN IN LIMB 09/29/2013 MADL PNEUMATIC TOOL REPAIRER, OSCAR L 719.47 PAIN IN JOINT INVOLVING ANKLE AND FOOT 09/29/2013 MADL PNEUMATIC TOOL REPAIRER, OSCAR L 729.5 PAIN IN LIMB 09/29/2013 MCMAHAN DO, YODIT K 719.47 PAIN IN JOINT INVOLVING ANKLE AND FOOT 09/29/2013 MCMAHAN DO, YODIT K 729.5 PAIN IN LIMB 09/29/2013 DEDE PNEUMATIC TOOL REPAIRER, DAYNE A 719.47 PAIN IN JOINT INVOLVING ANKLE AND FOOT 09/29/2013 DEDE PNEUMATIC TOOL REPAIRER, DAYNE A 729.5 PAIN IN LIMB 09/29/2013 DEDE PNEUMATIC TOOL REPAIRER, DAYNE A 719.47 PAIN IN JOINT INVOLVING ANKLE AND FOOT 09/29/2013 DEDE PNEUMATIC TOOL REPAIRER, DAYNE A 729.5 PAIN IN LIMB 09/29/2013 DUANE NOE PA-C 719.47 PAIN IN JOINT INVOLVING ANKLE AND FOOT 09/29/2013 DUANE NOE PA-C 729.5 PAIN IN LIMB 09/29/2013 JESSI DPM, ELISABET 719.47 PAIN IN JOINT INVOLVING ANKLE AND FOOT 09/29/2013 JESSI DPM, ELISABET 729.5 PAIN IN LIMB 09/29/2013 LAURA HANNON APRN 719.47 PAIN IN JOINT INVOLVING ANKLE AND FOOT 09/29/2013 LAURA HANNON APRN 729.5 PAIN IN LIMB 11/04/2013 OSCAR BURTON APRN L 110.1 DERMATOPHYTOSIS OF NAIL 11/04/2013 OSCAR BURTON APRN L 356.9 UNSPECIFIED IDIOPATHIC PERIPHERAL NEUROPATHY 11/04/2013 MCMAHAN LYNSEY BOSEA K 110.1 DERMATOPHYTOSIS OF NAIL 11/04/2013 MCMAHAN LYNSEY BOSEA K 356.9 UNSPECIFIED IDIOPATHIC PERIPHERAL NEUROPATHY 11/04/2013 DAYNE AGUAYO APRN A 110.1 DERMATOPHYTOSIS OF NAIL 11/04/2013 DAYNE AGUAYO APRN A 356.9 UNSPECIFIED IDIOPATHIC PERIPHERAL NEUROPATHY 11/04/2013 DAYNE AGUAYO APRN A 110.1 DERMATOPHYTOSIS OF NAIL 11/04/2013 DAYNE AGUAYO APRN A 356.9 UNSPECIFIED IDIOPATHIC PERIPHERAL NEUROPATHY 11/04/2013 DUANE NOE PA-C 110.1 DERMATOPHYTOSIS OF NAIL 11/04/2013 DUANE NOE PA-C 356.9 UNSPECIFIED IDIOPATHIC PERIPHERAL NEUROPATHY 11/04/2013 JESSI DPM, ELISABET 110.1 DERMATOPHYTOSIS OF NAIL 11/04/2013 JESSI DPM, ELISABET 356.9 UNSPECIFIED IDIOPATHIC PERIPHERAL NEUROPATHY 11/04/2013 LAURA HANNON APRN 110.1 DERMATOPHYTOSIS OF NAIL 11/04/2013 LAURA HANNON APRN 356.9 UNSPECIFIED IDIOPATHIC PERIPHERAL NEUROPATHY 01/26/2014 DAYNE AGUAYO APRN A 627.8 OTHER SPECIFIED MENOPAUSAL AND POSTMENOPAUSAL DISORDERS 01/26/2014 DAYNE AGUAYO APRN V72.62 LAB SCREENING- GENERAL PHYSICAL 01/26/2014 DAYNE AGUAYO APRN 627.8 OTHER SPECIFIED MENOPAUSAL AND POSTMENOPAUSAL DISORDERS 01/26/2014 DEDEDAYNE Wilks APRN A V72.62 LAB SCREENING- GENERAL PHYSICAL 01/26/2014 DUANE NOE PA-C 627.8 OTHER SPECIFIED MENOPAUSAL AND POSTMENOPAUSAL DISORDERS 01/26/2014 DUANE NOE PA-C V72.62 LAB SCREENING- GENERAL PHYSICAL 01/26/2014 JESSI DPM, ELISABET 627.8 OTHER SPECIFIED MENOPAUSAL AND POSTMENOPAUSAL DISORDERS 01/26/2014 JESSI DPM, ELISABET V72.62 LAB SCREENING- GENERAL PHYSICAL 01/26/2014 LAURA HANNON APRN 627.8 OTHER SPECIFIED MENOPAUSAL AND POSTMENOPAUSAL DISORDERS 01/26/2014 LAURA HANNON APRN V72.62 LAB SCREENING- GENERAL PHYSICAL 05/28/2014 LAURA HANNON APRN 754.50 CONGENITAL TALIPES VARUS 06/08/2014 LAURA HANNON APRN 564.00 UNSPECIFIED CONSTIPATION 06/08/2014 LAURA HANNON APRN 719.41 PAIN IN JOINT INVOLVING SHOULDER REGION 2014 LAURA HANNON APRN 465.9 UPPER RESPIRATORY INFECTION 2014 LAURA HANNON APRN 729.1 MYALGIA AND MYOSITIS UNSPECIFIED 2014 LAURA HANNON APRN 782.0 DISTURBANCE OF SKIN SENSATION 08/07/2016 AMANDEEP WILLIAMSON APRN Ot M54.5 LOW BACK PAIN 08/07/2016 AMANDEEP WILLIAMSON APRN Ot N83.202 UNSPECIFIED OVARIAN CYST, LEFT SIDE 08/07/2016 AMANDEEP WILLIAMSON APRN Ot R10.32 LEFT LOWER QUADRANT PAIN 08/08/2016 AMANDEEP WILLIAMSON APRN Ot M54.5 LOW BACK PAIN 08/08/2016 AMANDEEP WILLIAMSON APRN Ot N83.202 UNSPECIFIED OVARIAN CYST, LEFT SIDE 08/08/2016 AMANDEEP WILLIAMSON APRN Ot R10.32 LEFT LOWER QUADRANT PAIN 08/13/2016 AMANDEEP WILLIAMSON APRN Ot M54.5 LOW BACK PAIN 08/13/2016 AMANDEEP WILLIAMSON APRN Ot N83.202 UNSPECIFIED OVARIAN CYST, LEFT SIDE 08/13/2016 AMANDEEP WILLIAMSON APRN Ot R10.32 LEFT LOWER QUADRANT PAIN 08/14/2016 AMANDEEP WILLIAMSON PNEUMATIC TOOL REPAIRER Ot M54.5 LOW BACK PAIN 08/14/2016 AMANDEEP WILLIAMSON PNEUMATIC TOOL REPAIRER Ot N83.202 UNSPECIFIED OVARIAN CYST, LEFT SIDE 08/14/2016 AMANDEEP WILLIAMSON PNEUMATIC TOOL REPAIRER Ot R10.32 LEFT LOWER QUADRANT PAIN 08/15/2016 AMANDEEP WILLIAMSON PNEUMATIC TOOL REPAIRER Ot M54.5 LOW BACK PAIN 08/15/2016 AMANDEEP WILLIAMSON PNEUMATIC TOOL REPAIRER Ot N83.202 UNSPECIFIED OVARIAN CYST, LEFT SIDE 08/15/2016 AMANDEEP WILLIAMSON PNEUMATIC TOOL REPAIRER Ot R10.32 LEFT LOWER QUADRANT PAIN Procedures Code Description [place] [address] ROUTINE VENIPUNCTURE 05/16/2012 03930 H PYLORI (IN-HOUSE) 05/16/2012 20061 URINE DRUG SCREEN (IN-HOUSE) 05/16/2012 07411 ESR/SED RATE 03/2013 70210 CBC 05/16/2012 24095 CMP 05/16/2012 5755552 GFR CALC (RESULT ONLY) 05/16/2012 85627 CRP 05/17/2012 68817 UA W/MICROSCOPY 05/17/2012 44329 TSH 05/17/2012 00226 UA W/MICROSCOPY 05/27/2012 49426 OXIMETRY 2012 02463 THERAPUTIC INJ SQ/IM 06/18/2012 J1885 TORADOL PER 15 MG, INJ KETOROLAC TROMETHAMINE 06/18/2012 52769 SPIROMETRY 2012 73205 BRONCHODILATION PRE/POST 07/17/2012 19596 RESPIRATORY FLOW VOLUME LOOP 07/17/2012 69641 THERAPUTIC INJ SQ/IM 10/07/2012 J1885 TORADOL PER 15 MG, INJ KETOROLAC TROMETHAMINE 10/07/2012 37753 WART DESTRUCT 1-14 (CRYO) 02/03/2013 80904 CRYOTHERAPY OF SKIN 02/24/2013 52610 WART DESTRUCT 1-14 (CRYO) 05/20/2013 11383 XRAY ANKLE R, 2 VIEWS 09/30/2013 73498 XRAY FOOT RIGHT 2 VIEWS 09/30/2013 PODIATRY ELISABET BOWEN 11/04/2013 39773 ROUTINE VENIPUNCTURE 01/08/2014 78916 DEBRIDE NAIL 1-5 01/08/2014 13710 LIVER PANEL (LFT) 01/08/2014 80301 ROUTINE VENIPUNCTURE 01/29/2014 20218 CBC 01/29/2014 [id number] GFR CALC (RESULT ONLY) 01/29/2014 56144 CMP 01/29/2014 12822 LIPID PANEL 01/29 17533 TSH 01/29/2014 87663 ROUTINE VENIPUNCTURE 02/12/2014 40186 LIVER PANEL (LFT) 02/12/201483993 JOINT INJECTION- INTERMEDIATE JOINT 07/29/2014 Results Test Result Range Complete urinalysis with reflex to culture - 08/07/16 19:00 Urine color determination YELLOW NRG Urine clarity determination SLIGHTLY CLOUDY NRG Urine pH measurement by test strip 6 5- 9 Specific gravity of urine by test strip 1.020 1.016-1.022 Urine protein assay by test strip, semi-quantitative NEGATIVE NEGATIVE Urine glucose detection by automated test strip NEGATIVE NEGATIVE Erythrocytes detection in urine sediment by light microscopy NEGATIVE NEGATIVE Urine ketones detection by automated test strip NEGATIVE NEGATIVE Urine nitrite detection by test strip NEGATIVE NEGATIVE Urine total bilirubin detection by test strip NEGATIVE NEGATIVE Urine urobilinogen measurement by automated test strip (mass/volume) NORMAL NORMAL Urine leukocyte esterase detection by dipstick 1+ NEGATIVE Automated urine sediment erythrocyte count by microscopy (number/high power field) NONE NRG Automated urine sediment leukocyte count by microscopy (number/high power field ) [HPF] NRG Bacteria detection in urine sediment by light microscopy MODERATE NRG Squamous epithelial cells detection in urine sediment by light microscopy 25-50 NRG Crystals detection in urine sediment by light microscopy NONE NRG Casts detection in urine sediment by light microscopy NONE NRG Mucus detection in urine sediment by light microscopy NEGATIVE NRG Complete urinalysis with reflex to culture NO NRG Urine drug screening test - 08/07/16 19:00 Urine phencyclidine detection by screening method NEGATIVE NEGATIVE Urine benzodiazepines detection by screening method NEGATIVE NEGATIVE Urine cocaine detection NEGATIVE NEGATIVE Urine amphetamines detection by screening method NEGATIVE NEGATIVE Urine methamphetamine detection by screening method NEGATIVE NEGATIVE Urine cannabinoids detection by screening method POSITIVE NEGATIVE Urine opiates detection by screening method NEGATIVE NEGATIVE Urine barbiturates detection NEGATIVE NEGATIVE Screening urine tricyclic antidepressants detection NEGATIVE NEGATIVE Urine methadone detection by screening method NEGATIVE NEGATIVE Urine oxycodone detection NEGATIVE NEGATIVE Urine propoxyphene detection NEGATIVE NEGATIVE Complete blood count (CBC) with automated white blood cell (WBC) differential - 08/07/16 19:08 Blood leukocytes automated count (number/volume) 8.0 10*3/ uL 4.3-11.0 Blood erythrocytes automated count (number/volume) 4.83 10*6 /uL 4.35-5.85 Venous blood hemoglobin measurement (mass/volume) 15.6 g/dL 11.5-16.0 Blood hematocrit (volume fraction) 44 % 35-52 Automated erythrocyte mean corpuscular volume 90 [foz_us] 80-99 Automated erythrocyte mean corpuscular hemoglobin (mass per erythrocyte) 32 pg 25-34 Automated erythrocyte mean corpuscular hemoglobin concentration measurement ( mass/volume) 36 g/dL 32-36 Automated erythrocyte distribution width ratio 12.2 % 10.0-14.5 Automated blood platelet count (count/volume) 218 10*3/uL 130-400 Automated blood platelet mean volume measurement 11.5 [foz_ us] 7.4-10.4 Automated blood neutrophils/100 leukocytes 61 % 42-75 Automated blood lymphocytes/100 leukocytes 29 % 12-44 Blood monocytes/100 leukocytes 7 % 0-12 Automated blood eosinophils/100 leukocytes 2 % 0-10 Automated blood basophils/100 leukocytes 0 % 0-10 Blood neutrophils automated count (number/volume) 4.9 10*3 1.8-7.8 Blood lymphocytes automated count (number/volume) 2.3 10*3 1.0-4.0 Blood monocytes automated count (number/volume) 0.6 10*3 0.0-1.0 Automated eosinophil count 0.2 10*3/uL 0.0-0.3 Automated blood basophil count (count/volume) 0.0 10*3/uL 0.0-0.1 Whole blood basic metabolic panel - 08/07/16 19:08 Serum or plasma sodium measurement (moles/volume) 138 mmol/ L 135-145 Serum or plasma potassium measurement (moles/volume) 3.4 mmol/L 3.6-5.0 Serum or plasma chloride measurement (moles/volume) 105 mmol /L 98-107 Carbon dioxide 26 mmol/L 21-32 Serum or plasma anion gap determination (moles/volume) 7 mmol/L 5-14 Serum or plasma urea nitrogen measurement (mass/volume) 6 mg /dL 7-18 Serum or plasma creatinine measurement (mass/volume) 0.77 mg /dL 0.60-1.30 Serum or plasma urea nitrogen/creatinine mass ratio 8 NRG Serum or plasma creatinine measurement with calculation of estimated glomerular filtration rate > NRG Serum or plasma glucose measurement (mass/volume) 95 mg/dL 70-105 Serum or plasma calcium measurement (mass/volume) 9.1 mg/dL 8.5-10.1 Encounters ACCT No. Visit Date/Time Discharge Status Pt. Type Provider Facility Loc./Unit Complaint [id number] 08/07/2016 18:51:00 2016 21:00:00 DIS Outpatient AMANDEEP WILLIAMSON APRN [facility] ER BACK PAIN [id number] 09/21/2013 14:57:00 2013 16:31:00 DIS Emergency BETO SIMMS MD [facility] ER RIGHT LEG PAIN/NUMBNESS [id number] 08/25/2013 10:01:00 2013 12:32:00 DIS Emergency JOSE MOURA [facility] ER RIGHT HIP PAIN [id number] 04/03/2012 08:14:00 Document Registration
== END 2016-08-07 21:00 | disposition home or self-care (01) ==
LOC: EDUNIT# 18:49 → ER 18:51
DX: M54.5 Low back pain (principal); N83.202 Unspecified ovarian cyst, left side
CPT/HCPCS: 36415; 74176; 76830; 76856; 80048; 80306; 81000; 84703; 85025; 96372; 99282

== ENCOUNTER 2017-02-21 11:20 | Emergency (ER) | payer SELFPAY ==
[~2017-02-21] VITALS: Ht 175.3 cm; Wt 72.6 kg
[~2017-02-21 11:20] MED LIST changes: +CYCL5TAB PO; +NAPR500T PO
[2017-02-21 12:41] LABS: BILIRUBIN,URINE NEGATIVE (NEGATIVE); KETONES,URINE NEGATIVE (NEGATIVE); LEUKOCYTE ESTERASE ,URINE 1+ (NEGATIVE); NITRITE,URINE NEGATIVE (NEGATIVE); PH,URINE 7 (5-9); PROTEIN,URINE NEGATIVE (NEGATIVE); UROBILINOGEN,URINE NORMAL (NORMAL)
[2017-02-21] MEDS ORDERED: NS IV 1000 ML 1,000 ML IV ONE (12:59)
[2017-02-21] MEDS ORDERED: KETOROLAC 60 MG/2 ML VIAL IM STA (12:59)
[2017-02-21] MEDS ORDERED: ONDANSETRON 4 MG/2 ML (SDV) Z0FRAN IVP ONE (13:00)
[2017-02-21 13:02] LABS: SQUAMOUS EPITHELIAL CELL,UR >50 /HPF; WBC,URINE 0-2 /HPF
--- NOTE | 2017-02-21 13:05 | Diagnostic Imaging Report ---
Supine view of the abdomen. INDICATION: Back pain. FINDINGS: There is unremarkable bowel gas pattern seen. The small to moderate amount of fecal material is noted in the rectum area. No suspicious calcification seen. There is minimal left convexity curvature of the upper to mid lumbar spine which could be positional. IMPRESSION: No definite abnormality. Dictated by: Dictated on workstation # [id number]
--- NOTE | 2017-02-21 13:31 | ED Back Pain ---
General Chief Complaint: Back Problems Stated Complaint: LOWER BACK PAIN Nursing Triage Note: PT CO OF R KIDNEY, FLANK PAIN, STATES STARTED LAST PM Nursing Sepsis Screen: No Definite Risk History of Present Illness Time Seen by Provider: 12:25 Initial Comments Patient reports right CVA and flank pain. She denies pain directly over her spine. She does report the pain in the flank to radiate to her right hip. She had a history of sciatica. She denies any urinary symptoms of polyuria, dysuria or hematuria. She does report having a kidney stone in the past. She vomited 1 prior to arrival. She's taken no analgesics prior to arrival Location: Paraspinous Muscles Timing/Duration: 12-24 Hours Severity: Moderate Pain/Injury Location: Back Radiation: Other Method of Injury: Unknown (right hip) Associated Symptoms: muscle spasms, No fever, No weakness, No numbness in legs/ feet, No tingling in legs/feet, No sensory/motor loss, lower back pain, No loss of bladder control, No loss of bowel control Allergies and Home Medications Allergies Coded Allergies: No Known Drug Allergies (Unverified , 04/03/12) Home Medications Cyclobenzaprine HCl 10 Mg Tablet, 10 MG PO Q8H, #12 Ref 0 Prescribed by: AYANNA ANDREW on 02/21/17 8518 Constitutional: no symptoms reported, see HPI Genitourinary: see HPI, other (right CVA pain) : No Musculoskeletal: see HPI, back pain All Other Systems Reviewed Negative Unless Noted: Yes Past Ixwxksr-Pcuzqy-Olateo Hx Patient Social History Alcohol Use: Denies Use Recreational Drug Use: No Drug of Choice: CANNIBUS Type Used: Cigarettes, Electronic/Vapor 2nd Hand Smoke Exposure: Yes Recent Foreign Travel: No Contact w/Someone Who Travel: No Recent Infectious Disease Expo: No Recent Hopitalizations: No Physical Abuse: No Sexual Abuse: No Immunizations Up To Date Tetanus Booster (TDap): Unknown Seasonal Allergies Seasonal Allergies: No Surgeries History of Surgeries: Yes (LEFT KNEE) Respiratory History of Respiratory Disorde: No Cardiovascular History of Cardiac Disorders: No Neurological History of Neurological Disord: No Reproductive System Hx Reproductive Disorders: No Gastrointestinal History of Gastrointestinal Di: No Musculoskeletal History of Musculoskeletal Dis: Yes (SCIATICA) Endocrine History of Endocrine Disorders: No Cancer History of Cancer: No Psychosocial History of Psychiatric Problem: Yes Behavioral Health Disorders: Anxiety Suicide Risk Score: 0 Integumentary History of Skin or Integumenta: No Blood Transfusions History of Blood Disorders: No Reviewed Nursing Assessment Reviewed/Agree w Nursing PMH: Yes Physical Exam Vital Signs Vital Sign - Last 12Hours 02/21/17 12:25 Temp 97.6 Pulse 84 Resp 18 B/P (MAP) 140/105 Pulse Ox 96 Capillary Refill : Less Than 3 Seconds General Appearance: No Apparent Distress, WD/WN HEENT: TMs Normal, Pharynx Normal, Other (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) Neck: Full Range of Motion, Normal Inspection, Non Tender, Supple Cardiovascular: Regular Rate, Rhythm, No Edema Respiratory: Chest Non Tender, Lungs Clear Gastrointestinal: Normal Bowel Sounds, No Pulsatile Mass, Soft, No Distended, No Guarding, No Rebound, Tenderness (generalized, superficial) Back: Normal Inspection, No CVA Tenderness, CVA Tenderness (R), Decreased Range of Motion, Muscle Spasm Extremity: Normal Capillary Refill Neurologic/Psychiatric: Alert, Oriented x3, No Motor/Sensory Deficits, Normal Mood/Affect Skin: Normal Color, Warm/Dry Lymphatic: No Adenopathy Progress/Results/Core Measures Results/Orders Lab Results Laboratory Tests Test 02/21/17 12:34 02/21/17 13:30 Range/Units Urine Color YELLOW Urine Clarity CLEAR Urine pH 7 5-9 Urine Specific [place] 1.005 L 1.016-1.022 Urine Protein NEGATIVE NEGATIVE Urine Glucose (UA) NEGATIVE NEGATIVE Urine Ketones NEGATIVE NEGATIVE Urine Nitrite NEGATIVE NEGATIVE Urine Bilirubin NEGATIVE NEGATIVE Urine Urobilinogen NORMAL NORMAL MG/DL Urine Leukocyte Esterase 1+ H NEGATIVE Urine RBC (Auto) NEGATIVE NEGATIVE Urine RBC NONE /HPF Urine WBC 0-2 /HPF Urine Squamous Epithelial Cells >50 H /HPF Urine Renal Epithelial Cells NONE /HPF Urine Crystals NONE /LPF Urine Bacteria TRACE /HPF Urine Casts NONE /LPF Urine Mucus NEGATIVE /LPF Urine Culture Indicated NO Urine Opiates Screen NEGATIVE NEGATIVE Urine Oxycodone Screen NEGATIVE NEGATIVE Urine Methadone Screen NEGATIVE NEGATIVE Urine Propoxyphene Screen NEGATIVE NEGATIVE Urine Barbiturates Screen NEGATIVE NEGATIVE Ur Tricyclic Antidepressants Screen NEGATIVE NEGATIVE Urine Phencyclidine Screen NEGATIVE NEGATIVE Urine Amphetamines Screen NEGATIVE NEGATIVE Urine Methamphetamines Screen NEGATIVE NEGATIVE Urine Benzodiazepines Screen NEGATIVE NEGATIVE Urine Cocaine Screen NEGATIVE NEGATIVE Urine Cannabinoids Screen POSITIVE H NEGATIVE White Blood Count 6.4 4.3-11.0 10^3/uL Red Blood Count 4.92 4.35-5.85 10^6/uL Hemoglobin 15.7 11.5-16.0 G/DL Hematocrit 44 35-52 % Mean Corpuscular Volume 90 80-99 FL Mean Corpuscular Hemoglobin 32 25-34 PG Mean Corpuscular Hemoglobin Concent 35 32-36 G/DL Red Cell Distribution Width 12.3 10.0-14.5 % Platelet Count 255 130-400 10^3/uL Mean Platelet Volume 11.6 H 7.4-10.4 FL Neutrophils (%) (Auto) 67 42-75 % Lymphocytes (%) (Auto) 26 12-44 % Monocytes (%) (Auto) 7 0-12 % Eosinophils (%) (Auto) 1 0-10 % Basophils (%) (Auto) 0 0-10 % Neutrophils # (Auto) 4.3 1.8-7.8 X 10^3 Lymphocytes # (Auto) 1.7 1.0-4.0 X 10^3 Monocytes # (Auto) 0.4 0.0-1.0 X 10^3 Eosinophils # (Auto) 0.0 0.0-0.3 10^3/uL Basophils # (Auto) 0.0 0.0-0.1 10^3/uL Sodium Level 141 135-145 MMOL/L Potassium Level 3.3 L 3.6-5.0 MMOL/L Chloride Level 101 98-107 MMOL/L Carbon Dioxide Level 33 H 21-32 MMOL/L Anion Gap 7 5-14 MMOL/L Blood Urea Nitrogen 6 L 7-18 MG/DL Creatinine 0.70 0.60-1.30 MG/DL Estimat Glomerular Filtration Rate > 60 BUN/Creatinine Ratio 9 Glucose Level 90 70-105 MG/DL Calcium Level 9.7 8.5-10.1 MG/DL Total Bilirubin 0.4 0.1-1.0 MG/DL Aspartate Amino Transf (AST/SGOT) 25 5-34 U/L Alanine Aminotransferase (ALT/SGPT) 33 0-55 U/L Alkaline Phosphatase 59 40-136 U/L Total Protein 7.7 6.4-8.2 GM/DL Albumin 4.2 3.2-4.5 GM/DL My Orders Orders - AYANNA ANDREW Ua Culture If Indicated (02/21/17 12:34) Abdomen/Kub 1view (02/21/17 12:39) Saline Lock/Iv-Start (02/21/17 12:59) Ns Iv 1000 Ml (Sodium Chloride 0.9%) (02/21/17 12:59) Ondansetron Injection (Zofran Injectio (02/21/17 13:00) Ketorolac Injection (Toradol Injection) (02/21/17 12:59) Drug Screen Stat (Urine) (02/21/17 13:24) Cbc With Automated Diff (02/21/17 13:29) Comprehensive Metabolic Panel (02/21/17 13:29) Potassium Chloride (Tablet) (K Dur Table (02/21/17 14:45) Medications Given in ED Current Medications Medications Dose Ordered Sig/Radha Route Start Time Stop Time Status Last Admin Dose Admin Ondansetron HCl 4 mg ONCE ONCE IVP 02/21/17 13:00 02/21/17 13:01 DC 02/21/17 13:30 4 MG Potassium Chloride 20 meq ONCE ONCE PO 02/21/17 14:45 02/21/17 14:45 DC 02/21/17 14:45 20 MEQ Sodium Chloride 1,000 ml @ 0 mls/hr Q0M ONCE IV 02/21/17 12:59 02/21/17 13:01 DC 02/21/17 13:31 1,000 MLS/HR Vital Signs/I&O Vital Sign - Last 12Hours 02/21/17 02/21/17 12:25 14:45 Temp 97.6 Pulse 84 80 Resp 18 18 B/P (MAP) 140/105 Pulse Ox 96 96 Intake and Output 02/22/17 00:00 Intake Total 1000 ml Balance 1000 ml Blood Pressure Mean: 117 Point of Care Testing Urine -Bedside: Negative Progress Note : Time: 12:25 Progress Note Initial evaluation completed recommended KUB, UA, Toradol 30 mg IV, normal saline 1 L IV and Zofran 4 mg IV. 1315 patient reports slight improvement in her symptoms. Will continue to use normal saline. Diagnostic Imaging Diagonstic Imaging: Xray Plain Films/CT/US/NM/MRI: abdomen Comments NAME: TERRY SILVA [facility] REC#: [id number] PT STATUS: REG ER : 1970 PHYSICIAN: AYANNA ANDREW ADMIT DATE: 02/21/17/ER Draft Date of Exam:02/21/17 ABDOMEN/KUB 1VIEW Supine view of the abdomen. INDICATION: Back pain. FINDINGS: There is unremarkable bowel gas pattern seen. The small to moderate amount of fecal material is noted in the rectum area. No suspicious calcification seen. There is minimal left convexity curvature of the upper to mid lumbar spine which could be positional. IMPRESSION: No definite abnormality. Dictated on workstation # [id number] Dict: 02/21/17 1258 Trans: 02/21/17 1305 [facility] [id number] Interpreted by: TASHA ROTHMAN MD Electronically signed by: Reviewed: Reviewed by Me Departure Impression Impression: Primary Impression: Back strain Qualified Codes: S39.012A - Strain of muscle, fascia and tendon of lower back , initial encounter Disposition: HOME, SELF-CARE Condition: Stable Departure-Patient Inst. Decision time for Depature: 14:20 Referrals: [facility] (PCP/Family) Primary Care Physician Patient Instructions: Lumbar Muscle Strain (DC) Add. Discharge Instructions: Alternate Tylenol 650 mg and ibuprofen 600 mg every 4 hours for pain. Use prescription muscle relaxant for extreme pain or muscle spasms. Walk 5-10 minutes every couple hours for relief of pain. Increase water intake, and empty bladder frequently. Follow-up with primary care doctor or dentist for changes to the lower gumline. Return to emergency department for increased pain, new problems or concerns. All discharge instructions reviewed with patient and/or family. Voiced understanding. Scripts Cyclobenzaprine HCl (Cyclobenzaprine HCl) 10 Mg Tablet 10 MG PO Q8H for Spasms, #12 TAB 0 Refills Prov: AYANNA ANDREW 02/21/17 AYANNA ANDREW Feb 21, 2017 13:31
[2017-02-21 13:39] LABS: BASOPHILS % (AUTO) 0 % (0-10); EOSINOPHILS % (AUTO) 1 % (0-10); LYMPHOCYTES # (AUTO) 1.7 X 10^3 (1.0-4.0); LYMPHOCYTES % (AUTO) 26 % (12-44); MEAN CORPUSCULAR HEMOGLOBIN 32 PG (25-34); MEAN CORPUSCULAR HGB CONC 35 G/DL (32-36); MEAN CORPUSCULAR VOLUME 90 FL (80-99); MEAN PLATELET VOLUME 11.6 FL (7.4-10.4); MONOCYTES # (AUTO) 0.4 X 10^3 (0.0-1.0); MONOCYTES % (AUTO) 7 % (0-12); NEUTROPHILS # (AUTO) 4.3 X 10^3 (1.8-7.8); NEUTROPHILS % (AUTO) 67 % (42-75); PLATELET COUNT 255 10^3/uL (130-400); RED BLOOD COUNT 4.92 10^6/uL (4.35-5.85); RED CELL DISTRIBUTION WIDTH 12.3 % (10.0-14.5); WHITE BLOOD COUNT 6.4 10^3/uL (4.3-11.0)
[2017-02-21 13:56] LABS: ALANINE AMINOTRANSFERASE 33 U/L (0-55); ALBUMIN 4.2 GM/DL (3.2-4.5); ANION GAP 7 MMOL/L (5-14); ASPARTATE AMINO TRANSFERASE 25 U/L (5-34); BILIRUBIN,TOTAL 0.4 MG/DL (0.1-1.0); BLOOD UREA NITROGEN 6 MG/DL (7-18); BUN/CREATININE RATIO 9; CALCIUM 9.7 MG/DL (8.5-10.1); CARBON DIOXIDE 33 MMOL/L (21-32); CHLORIDE 101 MMOL/L (98-107); GFR ESTIMATED > 60; GLUCOSE 90 MG/DL (70-105); POTASSIUM 3.3 MMOL/L (3.6-5.0); SODIUM 141 MMOL/L (135-145); TOTAL PROTEIN 7.7 GM/DL (6.4-8.2)
[2017-02-21] MEDS ORDERED: CYCL10TA9 PO (14:38)
[2017-02-21 14:45] VITALS: BP 132/88
[2017-02-21] MEDS ORDERED: KCL 20 MEQ TAB (K-DUR) PO ONE (14:45)
== END 2017-02-21 14:45 | disposition home or self-care (01) ==
LOC: EDUNIT# 11:20 → ER 11:22
DX: S39.012A Strain of muscle, fascia and tendon of lower back, initial encounter (principal); F41.9 Anxiety disorder, unspecified; F17.210 Nicotine dependence, cigarettes, uncomplicated; Z86.73 Personal history of transient ischemic attack (TIA), and cerebral infarction without residual deficits; X58.XXXA Exposure to other specified factors, initial encounter
CPT/HCPCS: 36415; 74000; 80053; 80306; 81000; 84703; 85025; 96374; 96375